=== PATIENT | female | born 1950 | race Caucasian/White ===

== ENCOUNTER 2018-04-30 21:29 | Inpatient (IN) | payer MEDICAID ==
[~2018-04-30] VITALS: Ht 160 cm; Wt 56.4 kg
[2018-04-30 21:38] VITALS: Ht 160 cm; Wt 56.4 kg
--- NOTE | 2018-04-30 21:40 | NUR ---
PT PRESENTS TO ER TODAY WITH C/O OF CHEST PAIN THAT STARTED APPROX 20 MINS AGO. PT STATES SHE WAS IN THE CAR ON HER WAY TO SEE [employer] WHEN THE PAIN STARTED AND WAS BROUGHT TO THE ER BY HER DAUGHTER. PT STATES THE PAIN FEELS LIKE PRESSURE IN THE MIDDLE OF HER CHEST THAT RADIATES TO HER L ARM AND THROAT. PT DENIES ANY SOB AND LUNG SOUNDS WHERE CLEAR IN ALL LOBES UPON ASCULTATION. PT DENIES ANY OTHER SYMPTOMS. PT WAS PLACED ON 2L OF O2 VIA NASAL CANULA AND FULL REFINERY OPERATOR HELPER CRUDE UNIT. RESP ARE EQUAL AND UNLABORED. PT A&O X4. NO ACUTE DISTRESS NOTED. FAMILY AT BEDSIDE.
[2018-04-30 22:54] LABS: CALCIUM 8.7 mg/dL (8.5-10.1); CARBON DIOXIDE 25.6 mmol/L (21-32); CREATININE SERUM 1.7 mg/dL (0.6-1.0); POTASSIUM SERUM 3.9 mmol/L (3.5-5.1)
[2018-04-30 22:59] LABS: ALBUMIN 3.4 g/dL (3.4-5.0); BILIRUBIN TOTAL 0.1 mg/dL (0.20-1.00); TOTAL PROTEIN, SERUM 6.8 g/dL (6.4-8.2)
[2018-04-30 23:07] LABS: BASOPHIL % 0.4 % (0-2); PLATELET COUNT 234 x10^3mcL (130-400); RED CELL DISTRIBUTION WIDTH 12.3 % (11.5-14.5)
--- NOTE | 2018-04-30 23:12 | NUR ---
PT GIVEN MEDICATIONS IN AN UPRIGHT POSITION. PT NOTE REPORTING CP AT THIS TIME. PT VITALS WNL. PT TALKING WITH FAMILY AT BEDSIDE. NO ACUTE DISTRESS NOTED.
--- NOTE | 2018-04-30 23:57 | NUR ---
PT APPEARS TO BE RESTING COMFORTABLY. PT HYPERTENSIVE AT 156/68, ALL OTHER VITALS WNL. PT NOT REPORTING PAIN AT THIS TIME. PT TALKING WITH FAMILY AT BEDSIDE. NO ACUTE DISTRESS NOTED.
[2018-05-01 00:43] LABS: MAGNESIUM 1.8 mg/dL (1.8-2.4); PHOSPHOROUS 4.5 mg/dL (2.5-4.9)
[2018-05-01 00:47] LABS: CHOLESTEROL 224 mg/dL (<200); CHOLESTEROL/HDL RATIO 9.3; HDL CHOLESTEROL 24 mg/dL (40-60); TRIGLYCERIDES 592 mg/dL (<150)
[2018-05-01 00:53] LABS: FREE T4 0.83 ng/dL (0.76-1.46); FREE THYROXINE INDEX 3.1 ug/dL (1.4-4.5)
[2018-05-01] MEDS ORDERED: GOOD SENSE ASPI81 M3 PO (01:00)
[2018-05-01] MEDS ORDERED: ZESTRIL20 MG PO (01:02)
[2018-05-01] MEDS ORDERED: METFORMIN HYDR500 M1 PO (01:02)
--- NOTE | 2018-05-01 01:09 | NUR ---
REPORT GIVEN TO JERSEY GARCIA TO ASSUME CARE OF PT.
[2018-05-01 01:10] LABS: T3 TOTAL 1.38 ng/mL
--- NOTE | 2018-05-01 01:45 | NUR ---
RECEIVED PT FROM ED, TRANSPORTED VIA [facility], ACCOMPANIED BY NURSE AND FAMILY MEMBERS X3. NO ACUTE DISTRESS NOTED. PT ARRIVED IN STABLE CONDITION. BP 159/66 MAP 88 HR 62 O2 97% RA, RR 18 T 97.4; NO C/O PAIN AT THIS TIME. TELE MONITOR #[address], SHOWING NSR WITH ELEVATED T. PT DENIES ANY CHEST DISCOMFORT AT THIS TIME. ON RA, BREATHING EVEN AND UNLABORED. DENIES ANY SOB AT THIS TIME. IV TO RFA, PATENT AND INTACT. PT ORIENTED TO ROOM AND ENVIRONMENT. CALL LIGHT AND PERSONAL ITEMS IN REACH. WILL CONTINUE TO MONITOR.
[2018-05-01] MEDS ORDERED: LIPI20 PO (01:50)
[2018-05-01 03:17] VITALS: BP 159/66
[2018-05-01 04:16] LABS: microscopic required? YES; urine erythrocyte NEGATIVE (NEGATIVE)
[2018-05-01 04:27] LABS: AMPHETAMINE QUAL UR NONE DETECTED (See below)
[2018-05-01 05:25] VITALS: BP 120/50
[2018-05-01 07:01] LABS: CALCIUM 8.3 mg/dL (8.5-10.1); CARBON DIOXIDE 27.5 mmol/L (21-32); CHLORIDE SERUM 108 mmol/L (98-107); CREATININE SERUM 0.9 mg/dL (0.6-1.0); GFR1 > 60 mL/min; GLUCOSE SERUM 153 mg/dL (74-106); POTASSIUM SERUM 3.9 mmol/L (3.5-5.1); SODIUM SERUM 144 mmol/L (136-145)
[2018-05-01 07:12] LABS: BASOPHIL % 0.5 % (0-2); PLATELET COUNT 230 x10^3mcL (130-400); RED CELL DISTRIBUTION WIDTH 12.5 % (11.5-14.5)
--- NOTE | 2018-05-01 07:19 | NUR ---
PT RESTED DURING THE NIGHT WITH NO ACUTE DISTRESS NOTED. REMAINS ALERT AND ORIENTED TO BASELINE. NO C/O CHEST PAIN. PT BREATHING EVEN AND UNLABORED. NO C/O SOB. TO RFA REMAINS PATENT AND INTACT. ALL SAFETY MEASURES MAINTAINED. CALL LIGHT AND PERSONAL ITEMS IN REACH. ENDORSED CARE TO AM NURSE.
--- NOTE | 2018-05-01 07:30 | NUR ---
AWARE ABOUT TROP IS 1.890. SHE SAID SHE WILL PUT ORDERS. PT IS STABLE. V/S STABLE. DENIES CHEST PAIN THIS TIME. SINUS RHYTHM.
--- NOTE | 2018-05-01 07:30 | NUR ---
RECEIVED PT IN BED. ASSESSED AND WILL DOCUMENT. DENIES PAIN THIS TIME. SAFTEY PRECAUTIONS ARE IN PLACE. WILL MONITOR.
[2018-05-01 08:23] VITALS: BP 133/59
--- NOTE | 2018-05-01 09:45 | NUR ---
SAW TODAY'S EKG STRIP AND INFORMED HER TELE RHYTHM IS SR WITH SLIGHT ST ELEVATION. HR 71. DENIES CHEST PAIN THIS TIME. V/S STABLE.
--- NOTE | 2018-05-01 11:00 | NUR ---
INFORMED ABOUT TROP IS 1.837. NO NEW ORDER RECIEVED THIS TIME. PT IS ON LOVENOX SQ.
[2018-05-01 13:14] VITALS: BP 136/62
--- NOTE | 2018-05-01 14:00 | NUR ---
PT RESTING IN BED COMFORTABLY. DENIES PAIN THIS TIME. STABLE.
[2018-05-01 17:25] VITALS: BP 129/59
--- NOTE | 2018-05-01 19:02 | NUR ---
PT REMAINS STABLE. DENIES CHEST PAIN. RESTING IN BED COMFORTABLY. GAVE REPORT TO EXTENSION EDGER NURSE.
--- NOTE | 2018-05-01 19:30 | NUR ---
RECEIVED PT AWAKE, ALERT AND ORIENTED X4, FAMILY AT BEDSIDE. NO ACUTE DISTRESS NOTED. PT DENIES ANY CHEST PAIN. SHE REPORTS FEELING MUCH BETTER AND IS CURIOUS TO WHEN SHE IS ABLE TO GO HOME. BREATHING EVEN AND UNLABORED. ON RA, DENIES SOB. MILD WHEEZING AUSC TO POST. UPPER LOBES; PT REPORTS HX OF EMPHYSEMA. IV TO RFA PATENT AND INTACT. NO INFILTRATION NOTED TO SITE. ALL SAFETY MEASURES MAINTAINED. CALL LIGHT AND PERSONAL ITEMS IN REACH. WILL CONTINUE TO MONITOR.
--- NOTE | 2018-05-01 21:00 | NUR ---
EDUCATION PROVIDED TO PATIENT AND FAMILY REGARDING SMOKING CESSATION, DIET (REDUCING INTAKE OF CHOLESTEROL/TRIGLYCERIDES). EDUCATIONAL PACKET PROVIDED IN BOTH YORUBA AND SPANISH.
[2018-05-01 21:03] VITALS: BP 132/65
--- NOTE | 2018-05-02 00:23 | NUR ---
PT RESTING IN BED, EASILY AROUSABLE. NO DISTRESS NOTED. DENIES ANY PAIN OR DISCOMFORT. SAFETY MEASURES MAINTAINED. CALL LIGHT AND PERSONAL ITEMS IN REACH. WILL CONTINUE TO MONITOR.
--- NOTE | 2018-05-02 05:16 | NUR ---
PT RESTED DURING THE NIGHT WITH NO DISTRESS OR ACUTE CHANGES IN CONDITION NOTED DURING THE NIGHT. NO C/O CHEST PAIN OR PRESSURE. NO C/O RESP. DISCOMFORT. IV TO RFA REMAINS PATENT AND INTACT. ALL SAFETY MEASURES MAINTAINED. CALL LIGHT AND PERSONAL ITEMS IN REACH. WILL CONTINUE TO MONITOR.
[2018-05-02 05:34] VITALS: BP 141/66
[2018-05-02 06:19] LABS: BASOPHIL % 0.6 % (0-2); PLATELET COUNT 216 x10^3mcL (130-400); RED CELL DISTRIBUTION WIDTH 11.7 % (11.5-14.5)
[2018-05-02 06:26] LABS: CALCIUM 8.6 mg/dL (8.5-10.1); CARBON DIOXIDE 30.2 mmol/L (21-32); CHLORIDE SERUM 107 mmol/L (98-107); CREATININE SERUM 0.6 mg/dL (0.6-1.0); GFR1 > 60 mL/min; GLUCOSE SERUM 145 mg/dL (74-106); MAGNESIUM 1.8 mg/dL (1.8-2.4); PHOSPHOROUS 3.7 mg/dL (2.5-4.9); POTASSIUM SERUM 3.8 mmol/L (3.5-5.1); SODIUM SERUM 142 mmol/L (136-145)
--- NOTE | 2018-05-02 06:41 | NUR ---
PT BS 167, REFUSED COVERAGE. PAGED. NO FURTHER ORDERS AT THIS TIME.
--- NOTE | 2018-05-02 07:45 | NUR ---
RECEIVED PT IN BED. ASSESSED AND DOCUMENTED. DENIES PAIN THIS TIME. SAFTEY PRECAUTIONS ARE IN PLACE. WILL MONITOR.
--- NOTE | 2018-05-02 08:00 | NUR ---
INFORMED ABOUT HAS NOT SEEN THE PT. SAID SHE CONTACTED AND SHE WILL HERE AT 1300. PT AND FAMILY HAS BEEN ASKING ABOUT CARDIOLOGY CONSULT SO INFORMED THEM ABOUT WILL BE HERE AFTER 1300.
--- NOTE | 2018-05-02 08:45 | NUR ---
AWARE ABOUT TROP IS 1.001. TROP IS TRENDING DOWN.
[2018-05-02 09:30] VITALS: BP 137/50
[2018-05-02 12:10] VITALS: BP 136/71
--- NOTE | 2018-05-02 14:00 | NUR ---
PT RESTING IN BED COMFORTABLY. DENIES PAIN THIS TIME. STABLE. AWARE ABOUT HAS NOT COME TO SEE THE PT YET.
[2018-05-02 17:40] VITALS: BP 144/74
--- NOTE | 2018-05-02 19:03 | NUR ---
PT RESTING IN BED COMFORTABLY. DENIES PAIN THIS TIME. STABLE. GAVE REPORT TO ORGANIC SEARCH LEAD NURSE.
[2018-05-02 21:04] VITALS: BP 136/48
--- NOTE | 2018-05-02 23:50 | NUR ---
PT AWAKE, FAMILY AT BEDSIDE. NO DISTRESS. SAFETY MEASURES MAINTAINED. CALL LIGHT IN REACH. WILL CONTINUE TO MONITOR.
--- NOTE | 2018-05-03 00:18 | NUR ---
DR. PINEDA AT BEDSIDE WITH PATIENT AND DAUGHTER. QUESTIONS AND CONCERNS BEING ADDRESSED.
[2018-05-03 05:24] VITALS: BP 114/50
--- NOTE | 2018-05-03 05:29 | NUR ---
PT RESTED DURING THE NIGHT COMFORTABLY WITH NO C/O PAIN, CHEST DISCOMFORT OR RESP. DISTRESS. NO SIGNIFICANT CHANGES IN CONDITION NOTED. IV TO RFA REMAINS PATENT AND INTACT. ALL SAFETY PRECAUTIONS MAINTAINED. CALL LIGHT AND PERSONAL ITEMS IN REACH. WILL ENDORSE TO AM NURSE AND CONTINUE TO MONITOR.
[2018-05-03 06:22] LABS: CALCIUM 8.6 mg/dL (8.5-10.1); CARBON DIOXIDE 30.7 mmol/L (21-32); CHLORIDE SERUM 103 mmol/L (98-107); CREATININE SERUM 0.6 mg/dL (0.6-1.0); GFR1 > 60 mL/min; GLUCOSE SERUM 134 mg/dL (74-106); MAGNESIUM 1.8 mg/dL (1.8-2.4); PHOSPHOROUS 3.7 mg/dL (2.5-4.9); POTASSIUM SERUM 3.6 mmol/L (3.5-5.1); SODIUM SERUM 135 mmol/L (136-145)
[2018-05-03 06:37] LABS: BASOPHIL % 0.6 % (0-2); PLATELET COUNT 228 x10^3mcL (130-400); RED CELL DISTRIBUTION WIDTH 11.6 % (11.5-14.5)
--- NOTE | 2018-05-03 07:40 | NUR ---
PT IS AAOX4. DENIES H/A OR DIZZINESS. TELEMONITOR [address] READING NSR WITH INCREASED TWAVE. NO C/O CHEST PAIN OR PRESSURE. LUNG SOUNDS CTA. RESP EVEN AND UNLABORED. NO COUGH OR SOB NOTED. ON R/A. ABDOMEN SOFT, NONDISTENDED, NONTENDER. BOWEL SOUNDS ACTIVE. SKIN CDI. PERIPHERAL PULSES PALPABLE. NO EDEMA NOTED. IVF RUNNING TO [facility], LINE IS PATENT, SITE WNL. BED IN LOW POSITION. CALL LIGHT WITHIN REACH.
--- NOTE | 2018-05-03 09:27 | NUR ---
DUE MEDS GIVEN. PT IS WALKING AROUND IN ROOM. DENIES H/A, DIZINESS, CHEST PAIN OR PRESSURE. B/P 136/51, (74), P 66. CALL LIGHT WITHIN REACH.
[2018-05-03 10:02] VITALS: BP 136/51
--- NOTE | 2018-05-03 10:50 | NUR ---
ECHO IN PROGRESS.
--- NOTE | 2018-05-03 12:07 | NUR ---
LOVENOX GIVEN IN L LOWER QUAD OF ABDOMEN. PT DENIES PAIN OF DISCOMFORT AT THIS TIME. BLOOD SUGAR TAKEN, NO COVERAGE NEEDED PER RISS. CALL LIGHT WITHIN REACH.
[2018-05-03 13:02] VITALS: BP 145/64
--- NOTE | 2018-05-03 14:00 | NUR ---
PT IN ROOM SITTING AT BEDSIDE TALKING ON PHONE. DENIES CHEST PAIN OR PRESSURE. NO DISTRESS NOTED. CALL LIGHT WITHIN REACH.
--- NOTE | 2018-05-03 15:46 | NUR ---
CASE MANAGEMENT STATED THAT PT WILL TRANSFER TO [facility] ([place] ON 05/05/18 AT 10:00AM. PT WILL BE ADMITTED TO [facility] AND WAIT TO HAVE A PROCEDURED SCHEDULED. PT AND DAUGHTER BRANDON INFORMED OF TRANSFER PLANS AND AGREED WITH POC.
--- NOTE | 2018-05-03 16:27 | NUR ---
BLOOD SUGAR TAKEN =157, GAVE 3 UNITS REGULAR INSULIN. PT TOLERATED PROCEDURE WELL. NO C/O CHEST PAIN OR PRESSURE. NO DISTRESS NOTED. CALL LIGHT WITHIN REACH.
[2018-05-03 18:42] VITALS: BP 138/54
--- NOTE | 2018-05-03 18:54 | NUR ---
PT IS AAOX4. DENIES CHEST PAIN OR PRESSURE. RESP EVEN AND UNLABORED. NO DISTRESS NOTED. TELEMONITOR [address] READING NSR. IV CATH TO RFA PATENT WITH NO S/S OF INFILTRATION OR INFECTION NOTED. BED IN LOW POSITION. CALL LIGHT WITHIN REACH. WILL ENDORSE ALL CARE TO ONCOMING RN.
--- NOTE | 2018-05-03 19:38 | NUR ---
PT RECIEVED AAO REG RESP NO SOB V/S STABLE,FAMILY AT THE BEDSIDE,BED IN THE LOW POSITION AND LOCKED,PT ON TELE MONITOR AND IN NSR NO ECTOPY OR CHEST MARIE AT THIS TIME,PT WAS SEEN BY DR PINEDA AND ON TELE MONITOR AND IN NSR NO ECTOPY OR CHEST PAIN AT THIS TIME,CALL LIGHT EASY REACHED AND WILL CONTINUE TO MONITOR.
[2018-05-03 20:52] VITALS: BP 126/50
[2018-05-04 05:46] VITALS: BP 119/75
--- NOTE | 2018-05-04 06:45 | NUR ---
PT HAD A RESTING NIGHT V/S STABLE,NO CHANGE AT THIS TIME,WILL CONTINUE TO MONITOR.
--- NOTE | 2018-05-04 07:21 | NUR ---
RECEIVED PATIENT RESTING COMFORTABLY IN BED. IV TO RFA IS PATENT AND INFUSING NS @ 70 ML/HR. NO REDNESS OR PAIN. TELE # [address] NO C/O OF CHEST PAIN. PT ON ROOM AIR. NO C/O SOB AND NO DISTRESS NOTED. ALL QUESTIONS AND CONCERNS ADDRESSED.
--- NOTE | 2018-05-04 07:21 | NUR ---
RECEIVED PATIENT SLEEPING COMFORTALBY IN BED. IV TO RFA IS PATENT AND INFUSING NS @ 30 ML/HR. NO REDNESS OR PAIN. TELE # [address] NO INDICATION OF CHEST PAIN. PT ON ROOM AIR. NO DISTRESS NOTED. ALL QUESTIONS AND CONCERNS ADDRESSED.
[2018-05-04 09:10] VITALS: BP 116/60
--- NOTE | 2018-05-04 09:23 | NUR ---
ROUNDS: DR CASTLE, RESIDENTS, PRIMARY RN AND CRADLE PLACER AT BEDSIDE. PLAN IS TO DC FLUIDS AND HAVE ANGIO TOMORROW. PT VERBALIZED UNDERSTANDING AND ALL QUESTIONS AND CONCERNS WERE ADDRESSED.
--- NOTE | 2018-05-04 10:11 | NUR ---
Initial Nutrition Assessment Dx: Acute coronary syndrome PMHx: Emphysema, HLD, HTN, DM PSHx: Total Hysterectomy Labs: (05/03) Na 135L, K 3.6, BG 134, BUN 11, Cr 0.6, Trop + x5, TG 592H, Chol 224H, LDL 117H, A1c 7.3H, WBC 6.4, H/H 14.3/43 Meds: Aspirin, Colace, D50%, Glucophage, Humulin, Lipitor, Lovenox, Nitrostat, NSIV, Tylenol, Zestril, Zofran Diet: CCHO PO Intake: (05/04) B: 100% (05/03-05/02): All meals 100% Ht: 63" (160 cm) Wt: 124# (56.4 kg) BMI: 22 (WNL) IBW: 115# %IBW: 108% UBW: 120-125# Age: 68 y/o female Food Allergies: NKFA Skin: Intact Shubham: 22 Edema: None GI: Last BM x 1 (05/04) Per H&P, pt. admitted with CP x 2 hours associated with pressure and pain radiating to the left arm and neck regions. Pt. seen standing in room during visit. Pt. endorses excellent appetite with no reports of GI distress associated with diet. No nutritional concerns stated by pt. Pt. agreed to change diet to CCHO/Cardiac diet for optimal health management. Spoke with Dr. Yeung regarding recommendations, and was agreeable to implementing interventions. Problem with: No c/o N/V/D/C Problems with: Chewing: N Swallowing: N Current appetite: Excellent Recent wt change: None recent %wt change: N/A Vitamin/Supplement use: [place]-3 Special diet at home: Regular, CCHO Physical activity: Minimal amount of walking in the neighborhood 1-2 x weekly. Education: NCM CCHO/High Triglyceride diet therapy Slovenian handouts provided to patient. Emphasized the importance of CCHO counting and incorporating foods high in mono and poly-unsaturated fats. Also provided pt. with meal plans for both therapeutic diets. Pt. verbalized understanding and appreciation for diet education/handouts. Estimated Nutritional Needs Based on actual body weight 56.4 kg: Energy: 3170-0077 kcal/d (25-30 kcal/kg- adult maintenance) Protein: 45-56 g/d (0.8-1.0 g/kg)-maintenance and preservation of lean body mass Fluid: 7489-4381 ml/d (1 ml/kcal-fluid balance) or per doctor Nutrition Diagnosis 1. Altered nutrition related laboratory values r/t endocrine function and reported poor food choices AEB measured A1c 7.3 and altered lipid panel. Intervention/RD recommendations 1. Recommendation to change diet to cardiac, CCHO diet for improved cardiovascular health and DM/BG management. 2. DM and Cardiac diet handouts/education provided during assessment. Monitor/Evaluate Goal: PO intake at least 75% of estimated needs Monitor: PO intake, Labs, GI function, diet tolerance, BG <180 mg/dL F/U in 7 days as low risk (05/11)
--- NOTE | 2018-05-04 11:54 | NUR ---
IN TO CHECK BLOOD GLUCOSE. GLUCOSE IS 125. NO ACTION REQUIRED. PT HAS GOTTEN OK TO SHOWER AND WILL DO SO NOW.
[2018-05-04 12:15] VITALS: BP 115/61
--- NOTE | 2018-05-04 12:39 | NUR ---
IN TO SEE PATIENT AND ADMNISTER MEDICATION. (SEE eMAR)
[2018-05-04 17:10] VITALS: BP 120/62
[2018-05-04] MEDS ORDERED: LOV60I SC (17:34)
--- NOTE | 2018-05-04 19:40 | NUR ---
RECEIVED PT AWAKE, ALERT AND ORIENTED X4, FAMILY AT BEDSIDE. NO DISTRESS NOTED. PT APPEARS TO BE COMFORTABLE AND GOOD SPIRITS. PT DENIES ANY CHEST PAIN OR BREATHING DISCOMFORT. TELE MONITOR IN PLACE, PT ON RA, IV SALINE LOCKED TO RFA. ALL SAFETY MEASURES MAINTAINED. CALL LIGHT AND PERSONAL ITEMS IN REACH. WILL CONTINUE TO MONITOR.
--- NOTE | 2018-05-04 19:46 | NUR ---
REPORT GIVEN TO JERSEY GARCIA. ALL QUESTIONS AND CONCERNS ADDRESSED. ALL CARES ENDORSED.
[2018-05-04 21:20] VITALS: BP 126/57
--- NOTE | 2018-05-05 02:16 | NUR ---
PT RESTING WITH EYES CLOSED, EASILY AROUSABLE. NO INDICATION OF DISTRESS OR DISCOMFORT NOTED.BREATHING IS EVEN AND UNLABORED. SAFETY MEASURES MAINTAINED. CALL LIGHT AND PERSONAL ITEMS IN REACH. WILL CONTINUE TO MONITOR.
[2018-05-05 05:28] VITALS: BP 117/56
--- NOTE | 2018-05-05 06:33 | NUR ---
PT RESTED DURING THE NIGHT WITH NO ACUTE CHANGES IN CONDITION. PT REMAINS ALERT AND ORIENTED TO BASELINE. NO C/O CHEST OR RESP. DISCOMFORT. IV TO RFA SALINE LOCK AND INTACT. ALL SAFETY MEASURES MAINTAINED. CALL LIGHT AND PERSONAL ITEMS IN REACH. WILL ENDORSE CARE TO AM NURSE AND CONTINUE TO MONITOR.
--- NOTE | 2018-05-05 07:20 | NUR ---
RECEIVED REPORT FROM JERSEY GARCIA. PT SITTING COMFORTABLY AT EDGE OF BED. IV SALINE LOCK TO RFA IS PATENT AND INTACT. NO REDNESS OR PAIN. TELE # [address] PT DENIES CHEST PAIN. PT ON ROOM AIR. NO C/O SOB AND NO DISTRESS NOTED. ALL QUESTIONS AND CONCERNS ADDRESSED.
[2018-05-05 10:04] VITALS: BP 142/56
[2018-05-05 10:08] VITALS: BP 142/56
--- NOTE | 2018-05-05 10:16 | NUR ---
REPORT CALLED [place] [facility] [place] [facility] SPOKE WITH NEISHA GARCIA. ALL QUESTIONS AND CONCERNS ADDRESSED ALL CARES ENDORSED. DISCHARGE AND TRANSFER PAPERS DISCUSSED AND SIGNED BY PATIENT. TELE MONITOR REMOVED. MONITOR NOTIFIED. ID BANDS CUT. IV REMAINS IN RFA. IV POLE CLEARED. REPORT GIVEN TO EMT CASANDRA. PT ESCORTED TO AMBULANCE VIA [facility] ACCOMPANIED BY FAMILY.
== END 2018-05-05 10:35 | disposition short-term general hospital (02) | DRG 190 ==
LOC: ED 21:29 → DU 05-01 00:04
PROVIDERS: Emergency Medicine; ADMIT Family Medicine
DX: I21.4 Non-ST elevation (NSTEMI) myocardial infarction (principal); N17.0 Acute kidney failure with tubular necrosis; E11.65 Type 2 diabetes mellitus with hyperglycemia; E44.1 Mild protein-calorie malnutrition; E78.5 Hyperlipidemia, unspecified; J43.8 Other emphysema; I16.0 Hypertensive urgency; E02 Subclinical iodine-deficiency hypothyroidism; Z68.22 Body mass index [BMI] 22.0-22.9, adult; F17.210 Nicotine dependence, cigarettes, uncomplicated; Z79.84 Long term (current) use of oral hypoglycemic drugs
CPT/HCPCS: 82962; 83880; 84439; 85378; 90658; J1650; J1815; J7030; Q0092